=== PATIENT | female | born 1945 ===

== ENCOUNTER → 2018-11-28 | Outpatient (CLI) | payer MEDICARE, BC ==
--- NOTE | 2018-11-28 10:53 | MR ---
EXAMINATION TYPE: MR cervical spine wo con DATE OF EXAM: 11/28/2018 COMPARISON: None HISTORY: myelopathy, ataxia, hyperreflexia TECHNIQUE: Multiplanar, multisequence images of the cervical spine were acquired. C2-C3: Small posterior disc bulge noted. No Canal stenosis. Foramina are patent bilaterally. C3-C4: No evidence for degenerative disc disease. No disc bulge/herniation or protrusion. No Canal stenosis. Foramina are patent bilaterally. C4-C5: There is mild to moderate central canal stenosis due to posterior extension of endplate disc c omplex, retrolisthesis. Uncovertebral joint hypertrophy facet arthropathy results in bilateral forami nal encroachment left greater than right. C5-C6: Bilateral foraminal encroachment right greater than left due to uncovertebral joint hypertroph y and facet arthropathy. Mild central stenosis. Minimal posterior broad-based disc bulge is present. C6-C7: Posterior extension endplate disc complex is noted. Mild anterior mass effect on the thecal sa c, no significant central stenosis. There is foraminal encroachment present bilaterally. C7-T1: There is an eccentric posterior right lateral disc bulge causing anterolateral mass effect on the thecal sac. No significant central stenosis. No significant foraminal encroachment. Cervical segments are intact. There is normal alignment. Cervical spinal cord is of normal signal. Craniovertebral junction relationships are within normal limits. Cervical vertebral bodies show pres erved height. Minimal retrolisthesis grade 1 C4-5. Loss of disc height signal is present intervertebr al levels, there is multilevel spondylosis with endplate discogenic marrow signal change. IMPRESSION: Degenerative disc disease, spinal stenosis, multilevel foraminal encroachment.
== END ==
LOC: RADMRIMAIN 08:59
PROVIDERS: ATTEND Psychiatry & Neurology Neurology
DX: M48.02 Spinal stenosis, cervical region (principal); M50.021 Cervical disc disorder at C4-C5 level with myelopathy
CPT/HCPCS: 72141